=== PATIENT | male | born 1965 | race Two or more races ===

== ENCOUNTER 2016-11-04 21:34 | Emergency (ER) | payer OTHER ==
[2016-11-04 21:46] VITALS: BP 186/126
[2016-11-04] MEDS ORDERED: Sodium Chloride 0.9% 10 ML Syringe FLUSH PRN (22:03)
[2016-11-04] MEDS ORDERED: Sodium Chloride 0.9% 1,000 ML IV SCH (22:15)
--- NOTE | 2016-11-04 22:43 | EDM.PDOC ---
ED HPI Behavioral Health - General Chief Complaint: Behavioral/Psych Stated Complaint: MENTAL EVALUATION Time Seen by Provider: 11/04/16 21:55 Source of Information: Reports: Patient, Police Exam Limitations: Reports: Intoxication - History of Present Illness INITIAL COMMENTS - FREE TEXT/NARRATIVE: The patient was brought in by police for a mental health evaluation. He was diagnosed with renal cancer last month and he is having surgery on the with Dr Del Cid to have his left kidney removed. He had renal cancer on his right kidney a few years ago and he had a mass removed. He feels he may be depressed. He has not been eating or sleeping much. He has been drinking alcohol. He admits to drinking beer tonight. He said he wanted to shot himself in the head with a gun. He does not have a gun any more. he says he deserves what ever happens to him for all the bad things he has done. He is not hearing voices or seeing anything. Onset of Symptoms: Reports: gradual Duration of Symptoms: Reports: Day(s): Severity: moderate Context, Behavioral Health: Reports: other (Hard time dealing with a cancer diagnosis) Associated Symptoms: Reports: depression, suicidal thought - SAD Persons Scale (SPS) SPS Age: Between 18-65 Years of Age SPS Depression: Yes SPS Previous Suicide Attempts: Yes SPS Alcohol Abuse/Drug Abuse: Yes SPS Rational Thinking Loss: No SPS Social Support Deficit: No SPS Organized Suicide Plan: No SPS No Spouse/Significant Other: No SPS Sickness: Yes SPS Sad Person Scale Score: 4 - Related Data Allergies Allergy/AdvReac Type Severity Reaction Status Date / Time No Known Allergies Allergy Verified 11/04/16 21:46 Home Medications: Home Meds Carvedilol 12.5 mg PO BID 10/15/16 [History] Diltiazem HCl [Diltiazem 24Hr Cd] 240 mg PO DAILY 10/15/16 [History] Hydrocodone/Acetaminophen [[place] 5-325 Tablet] 1 - 2 each PO Q6H PRN #20 tablet 10/15/16 [Rx] Lisinopril 20 mg PO BID 10/15/16 [History] Prasugrel HCl [Effient] 1 tab PO DAILY 10/15/16 [History] atorvaSTATin [Lipitor] 80 mg PO BEDTIME 10/15/16 [History] glipiZIDE [Glucotrol XL] 1 tab PO DAILY 10/15/16 [History] metFORMIN [Glucophage] 1,000 mg PO BIDMEALS 10/15/16 [History] Past Medical History Cardiovascular History: Reports: High cholesterol, Hypertension, [place], Stents Gastrointestinal History: Reports: Chronic diarrhea Genitourinary History: Reports: Other (see below) Other Genitourinary History: tumor removed from kidney right kidney Musculoskeletal History: Reports: Back pain, chronic Psychiatric History: Reports: Anxiety, Depression Endocrine/Metabolic History: Reports: Diabetes, type II Oncologic (Cancer) History: Reports: Renal Dermatologic History: Reports: Other (see below) Other Dermatologic History: itchy skin - Past Surgical History Cardiovascular Surgical History: Reports: Coronary artery stent Social & Family History - Family History Family Medical History: Noncontributory - Tobacco Use Smoking Status *Q: Current Every Day Smoker Years of Tobacco use: 30 Packs/Tins Daily: 1 - Caffeine Use Caffeine Use: Reports: None - Alcohol Use Days Per Week of Alcohol Use: 7 Number of Drinks Per Day: 4 Total Drinks Per Week: 28 - Recreational Drug Use Recreational Drug Use: No ED ROS GENERAL - Review of Systems Review Of Systems: See Below Constitutional: Reports: no symptoms HEENT: Reports: No symptoms Respiratory: Reports: No Symptoms Cardiovascular: Reports: No symptoms Endocrine: Reports: no symptoms GI/Abdominal: Reports: No symptoms : Reports: no symptoms Musculoskeletal: Reports: no symptoms Skin: Reports: no symptoms Neurological: Reports: No Symptoms ED EXAM, BEHAVIORAL HEALTH - Physical Exam Exam: See Below Exam Limited By: Intoxication General Appearance: alert, no apparent distress Ears: normal external exam Nose: normal inspection Head: atraumatic, normocephalic Neck: normal inspection Respiratory/Chest: no respiratory distress, lungs clear, normal breath sounds Cardiovascular: regular rate, rhythm, no edema, no murmur GI/Abdominal: soft, non tender, no organomegaly, no mass Back Exam: normal inspection Extremities: normal inspection Neurological: alert, no motor/sensory deficits, oriented x 3 COURSE, BEHAVIORAL HEALTH COMP - Course Vital Signs: Last Vital Signs Temp 97.3 F 11/04/16 21:42 Pulse 115 H 11/04/16 21:42 Resp 18 11/04/16 21:42 BP 186/126 H 11/04/16 21:42 Pulse Ox 96 11/04/16 21:42 Orders, Labs, Meds: Active Orders 24 hr Category Date Time Status Cardiac Monitoring [RC] . DIRECTED Care 11/04/16 22:03 Active Peripheral IV Care [RC] . DIRECTED Care 11/04/16 22:03 Active Sodium Chloride 0.9% [Normal Saline] 1,000 ml Med 11/04/16 22:15 Active IV .BOLUS Sodium Chloride 0.9% [Saline Flush] Med 11/04/16 22:03 Active 10 ml FLUSH ASDIRECTED PRN Peripheral IV Insertion Adult [OM.PC] Stat Oth 11/04/16 22:03 Ordered Medication Orders Sodium Chloride (Normal Saline) 1,000 mls @ 1,000 mls/hr IV .BOLUS CAMRON Last Admin: 11/04/16 22:18 Dose: 1,000 mls/hr Sodium Chloride (Saline Flush) 10 ml FLUSH ASDIRECTED PRN PRN Reason: Keep Vein Open Last Admin: 11/04/16 22:20 Dose: 10 ml Laboratory Tests 11/04/16 11/04/16 11/04/16 Range/Units 22:00 22:00 22:09 WBC 9.19 H (4.23-9.07) K/mm3 RBC 4.32 L (4.63-6.08) M/mm3 Hgb 14.6 (13.7-17.5) gm/L Hct 42.6 (40.1-51.0) % MCV 98.6 H (79.0-92.2) fl MCH 33.8 H (25.7-32.2) pg MCHC 34.3 (32.2-35.5) g/dl RDW Std Deviation 45.8 H (35.1-43.9) fL Plt Count 326 (163-337) K/mm3 MPV 9.8 (9.4-12.3) fl Neut % (Auto) 55.3 (34.0-67.9) % Lymph % (Auto) 31.8 (21.8-53.1) % [place] % (Auto) 9.6 (5.3-12.2) % Eos % (Auto) 2.7 (0.8-7.0) Baso % (Auto) 0.4 (0.1-1.2) % Neut # 5.08 (1.78-5.38) K/mm3 Lymph # 2.92 (1.32-3.57) K/mm3 [place] # 0.88 H (0.30-0.82) K/mm3 Eos # 0.25 (0.04-0.54) K/mm3 Baso # 0.04 (0.01-0.08) K/mm3 Sodium (136-145) mEq/L Potassium (3.5-5.1) mEq/L Chloride (98-107) mEq/L Carbon Dioxide (21-32) mEq/L Anion Gap (5-15) BUN (7-18) mg/dL Creatinine (0.7-1.3) mg/dL Est Cr Clr Drug Dosing mL/min Estimated GFR (MDRD) (>60) mL/min BUN/Creatinine Ratio (14-18) Glucose (74-106) mg/dL Calcium (8.5-10.1) mg/dL Total Bilirubin (0.2-1.0) mg/dL AST (15-37) U/L ALT (16-63) U/L Alkaline Phosphatase (46-116) U/L Total Protein (6.4-8.2) g/dl Albumin (3.4-5.0) g/dl Globulin gm/dL Albumin/Globulin Ratio (1-2) TSH 3rd Generation (0.358-3.74) uIU/mL Urine Color Light yellow (Yellow) Urine Appearance Clear (Clear) Urine pH 6.5 (5.0-8.0) Ur Specific [place] 1.010 (1.005-1.030) Urine Protein Negative (Negative) Urine Glucose (UA) 2+ H (Negative) Urine Ketones Negative (Negative) Urine Occult Blood Negative (Negative) Urine Nitrite Negative (Negative) Urine Bilirubin Negative (Negative) Urine Urobilinogen 0.2 (0.2-1.0) Ur Leukocyte Esterase Negative (Negative) Urine RBC Not seen (0-5) /hpf Urine WBC 0-5 (0-5) /hpf Urine WBC Clumps Not seen (NOT SEEN) /hpf Ur Epithelial Cells Not seen (0-5) /hpf Urine Bacteria Not seen (FEW) /hpf Urine Mucus Not seen (FEW) /hpf Urine Yeast Not seen (NOT SEEN) Urine Opiates Screen Presumptive positive H (NEGATIVE) Ur Buprenorphine Scrn Negative (NEGATIVE) Ur Oxycodone Screen Presumptive positive H (NEGATIVE) Urine Methadone Screen Negative (NEGATIVE) Ur Propoxyphene Screen Negative (NEGATIVE) Ur Barbiturates Screen Negative (NEGATIVE) Ur Tricyclics Screen Negative (NEGATIVE) Ur Phencyclidine Scrn Negative (NEGATIVE) Ur Amphetamine Screen Negative (NEGATIVE) U Methamphetamines Scrn Negative (NEGATIVE) U Benzodiazepines Scrn Negative (NEGATIVE) U Cocaine Metab Screen Negative (NEGATIVE) U Marijuana (THC) Screen Negative (NEGATIVE) Ethyl Alcohol (0.00) gm% 11/04/16 Range/Units 22:09 WBC (4.23-9.07) K/mm3 RBC (4.63-6.08) M/mm3 Hgb (13.7-17.5) gm/L Hct (40.1-51.0) % MCV (79.0-92.2) fl MCH (25.7-32.2) pg MCHC (32.2-35.5) g/dl RDW Std Deviation (35.1-43.9) fL Plt Count (163-337) K/mm3 MPV (9.4-12.3) fl Neut % (Auto) (34.0-67.9) % Lymph % (Auto) (21.8-53.1) % [place] % (Auto) (5.3-12.2) % Eos % (Auto) (0.8-7.0) Baso % (Auto) (0.1-1.2) % Neut # (1.78-5.38) K/mm3 Lymph # (1.32-3.57) K/mm3 [place] # (0.30-0.82) K/mm3 Eos # (0.04-0.54) K/mm3 Baso # (0.01-0.08) K/mm3 Sodium 138 (136-145) mEq/L Potassium 3.7 (3.5-5.1) mEq/L Chloride 102 (98-107) mEq/L Carbon Dioxide 24 (21-32) mEq/L Anion Gap 15.7 H (5-15) BUN 12 (7-18) mg/dL Creatinine 1.1 (0.7-1.3) mg/dL Est Cr Clr Drug Dosing 84.62 mL/min Estimated GFR (MDRD) > 60 (>60) mL/min BUN/Creatinine Ratio 10.9 L (14-18) Glucose 336 H (74-106) mg/dL Calcium 9.2 (8.5-10.1) mg/dL Total Bilirubin 0.3 (0.2-1.0) mg/dL AST 25 (15-37) U/L ALT 63 (16-63) U/L Alkaline Phosphatase 106 (46-116) U/L Total Protein 7.7 (6.4-8.2) g/dl Albumin 4.5 (3.4-5.0) g/dl Globulin 3.2 gm/dL Albumin/Globulin Ratio 1.4 (1-2) TSH 3rd Generation 1.042 (0.358-3.74) uIU/mL Urine Color (Yellow) Urine Appearance (Clear) Urine pH (5.0-8.0) Ur Specific [place] (1.005-1.030) Urine Protein (Negative) Urine Glucose (UA) (Negative) Urine Ketones (Negative) Urine Occult Blood (Negative) Urine Nitrite (Negative) Urine Bilirubin (Negative) Urine Urobilinogen (0.2-1.0) Ur Leukocyte Esterase (Negative) Urine RBC (0-5) /hpf Urine WBC (0-5) /hpf Urine WBC Clumps (NOT SEEN) /hpf Ur Epithelial Cells (0-5) /hpf Urine Bacteria (FEW) /hpf Urine Mucus (FEW) /hpf Urine Yeast (NOT SEEN) Urine Opiates Screen (NEGATIVE) Ur Buprenorphine Scrn (NEGATIVE) Ur Oxycodone Screen (NEGATIVE) Urine Methadone Screen (NEGATIVE) Ur Propoxyphene Screen (NEGATIVE) Ur Barbiturates Screen (NEGATIVE) Ur Tricyclics Screen (NEGATIVE) Ur Phencyclidine Scrn (NEGATIVE) Ur Amphetamine Screen (NEGATIVE) U Methamphetamines Scrn (NEGATIVE) U Benzodiazepines Scrn (NEGATIVE) U Cocaine Metab Screen (NEGATIVE) U Marijuana (THC) Screen (NEGATIVE) Ethyl Alcohol 0.15 (0.00) gm% Medications Generic Name Dose Route Start Last Admin Trade Name Freq PRN Reason Stop Dose Admin Sodium Chloride 1,000 mls @ 1,000 mls/hr 11/04/16 22:15 11/04/16 22:18 Normal Saline IV 1,000 mls/hr .BOLUS CAMRON Administration Sodium Chloride 10 ml 11/04/16 22:03 11/04/16 22:20 Saline Flush FLUSH 10 ml ASDIRECTED PRN Administration Keep Vein Open Discontinued Medications Generic Name Dose Route Start Last Admin Trade Name [place] PRN Reason Stop Dose Admin Lorazepam 0.5 mg 11/04/16 23:52 11/04/16 23:56 Ativan IVPUSH 11/04/16 23:53 0.5 mg ONETIME ONE Administration Temazepam 15 mg 11/05/16 01:44 11/05/16 01:53 Restoril PO 11/05/16 01:45 15 mg ONETIME ONE Administration Re-Assessment/Re-Exam: I ordered an IV NS 1L bolus, labs, ETOH and urine drug screen. His WBC was elevated at 9.19. His glucose was elevated at 336. His TSH was negative. His UA shows no UTI. His UDS was positive for opiates and oxycodone which he takes. His ETOH was 0.15. I will let him sleep for awhile and assess him in the morning. He is doing good. I feel this was the stress from the diagnosis and alcohol. He does not want to be on an antidepressent at this time. I will have him talk to his doctor Dr Kim. Departure - Departure Time of Disposition: 05:55 Disposition: Home, Self-Care 01 Condition: good Clinical Impression: Suicidal ideation Alcohol intoxication Qualifiers: Complication of substance-induced condition: uncomplicated Qualified Code(s): F10.120 - Alcohol abuse with intoxication, uncomplicated Depression Qualifiers: Depression Type: unspecified Qualified Code(s): F32.9 - Major depressive disorder, single episode, unspecified Referrals: Chepe Kim Jr, MD [Primary Care Provider] - 3 Days Forms: ED Department Discharge Additional Instructions: Follow up with your doctor on Tuesday. Please return if you feel worse. - My Orders Last 24 Hours: My Active Orders 11/04/16 22:03 Cardiac Monitoring [RC] . DIRECTED Peripheral IV Care [RC] . DIRECTED Sodium Chloride 0.9% [Saline Flush] 10 ml FLUSH ASDIRECTED PRN Peripheral IV Insertion Adult [OM.PC] Stat 11/04/16 22:15 Sodium Chloride 0.9% [Normal Saline] 1,000 ml IV .BOLUS - Assessment/Plan Last 24 Hours: My Active Orders 11/04/16 22:03 Cardiac Monitoring [RC] . DIRECTED Peripheral IV Care [RC] . DIRECTED Sodium Chloride 0.9% [Saline Flush] 10 ml FLUSH ASDIRECTED PRN Peripheral IV Insertion Adult [OM.PC] Stat 11/04/16 22:15 Sodium Chloride 0.9% [Normal Saline] 1,000 ml IV .BOLUS
[2016-11-04] MEDS ORDERED: LORazepam 2 MG/ML MDV IVPUSH ONE (23:52)
[2016-11-05] MEDS ORDERED: Temazepam 15 MG Cap PO ONE (01:44)
== END 2016-11-05 06:00 | disposition home or self-care (01) ==
LOC: JD.ED 21:34
DX: F32.9 Major depressive disorder, single episode, unspecified (principal); F10.120 Alcohol abuse with intoxication, uncomplicated; I10 Essential (primary) hypertension; E78.00 Pure hypercholesterolemia, unspecified; I25.2 Old myocardial infarction; E11.9 Type 2 diabetes mellitus without complications; F17.210 Nicotine dependence, cigarettes, uncomplicated; Z79.899 Other long term (current) drug therapy; Z85.53 Personal history of malignant neoplasm of renal pelvis; Z95.5 Presence of coronary angioplasty implant and graft; Z98.890 Other specified postprocedural states; Z79.84 Long term (current) use of oral hypoglycemic drugs; Y90.0 Blood alcohol level of less than 20 mg/100 ml
CPT/HCPCS: 36415; 80053; 80306; 81001; 84443; 85025; 96361; 96374; 99285; A9270; G0480; J2060; J7040; J7050

== ENCOUNTER 2017-07-11 11:11 | Emergency (ER) | payer BC, OTHER ==
[2017-07-11 11:26] VITALS: BP 194/114
[2017-07-11] MEDS ORDERED: Aspirin 81 MG Tab.Chew PO STA (11:29)
[2017-07-11] MEDS ORDERED: Diltiazem 180 MG Cap.CD PO ONE (11:41)
[2017-07-11] MEDS ORDERED: Nitroglycerin 2% Oint 1 GM UD Packet TOP ONE (11:41)
[2017-07-11] MEDS ORDERED: HYDROmorphone 0.5 MG/0.5 ML Syringe IVPUSH ONE (13:12)
--- NOTE | 2017-07-11 13:18 | EDM.PDOC ---
ED HPI GENERAL MEDICAL PROBLEM - General Chief Complaint: Chest Pain Stated Complaint: CHEST PAIN Time Seen by Provider: 07/11/17 11:34 Source of Information: Reports: Patient, Family, RN Notes Reviewed - History of Present Illness INITIAL COMMENTS - FREE TEXT/NARRATIVE: 51-year-old male comes in with intermittent chest pain for the past 2 weeks. The episodes of discomfort been more frequent the last day or 2 and today he did have some radiation to the base of his neck into the left arm. He is pain- free at the time of my exam. He's not been short of breath. No nausea vomiting or diaphoresis. He does have history of known coronary artery disease with NV and one stent placed about 2 years ago. He quit smoking about 8 months ago. No major recent abdominal discomfort. 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 No recent cough fever or chills. Left Chest Pain Score (Numeric/FACES): 2 - Related Data Allergies Allergy/AdvReac Type Severity Reaction Status Date / Time No Known Allergies Allergy Verified 07/11/17 11:26 Home Meds: Home Meds Carvedilol 12.5 mg PO BID 10/15/16 [History] Diltiazem HCl [Diltiazem 24Hr Cd] 240 mg PO DAILY 10/15/16 [History] Hydrocodone/Acetaminophen [[place] 5-325 Tablet] 1 - 2 each PO Q6H PRN #20 tablet 10/15/16 [Rx] Lisinopril 20 mg PO BID 10/15/16 [History] Prasugrel HCl [Effient] 1 tab PO DAILY 10/15/16 [History] atorvaSTATin [Lipitor] 80 mg PO BEDTIME 10/15/16 [History] glipiZIDE [Glucotrol XL] 1 tab PO DAILY 10/15/16 [History] metFORMIN [Glucophage] 1,000 mg PO BIDMEALS 10/15/16 [History] Past Medical History Cardiovascular History: Reports: High Cholesterol, Hypertension, [place], Stents Gastrointestinal History: Reports: Chronic Diarrhea Genitourinary History: Reports: Other (See Below) Other Genitourinary History: 1 kidney removal r/t [place] Musculoskeletal History: Reports: Back Pain, Chronic Psychiatric History: Reports: Anxiety, Depression Endocrine/Metabolic History: Reports: Diabetes, Type II Oncologic (Cancer) History: Reports: Renal Dermatologic History: Reports: Other (See Below) Other Dermatologic History: itchy skin - Past Surgical History Cardiovascular Surgical History: Reports: Coronary Artery Stent Social & Family History - Family History Family Medical History: Noncontributory - Tobacco Use Smoking Status *Q: Former Smoker Years of Tobacco use: 30 Packs/Tins Daily: 1 Used Tobacco, but Quit: Yes Month Tobacco Last Used: october 2016 - Caffeine Use Caffeine Use: Reports: None - Alcohol Use Days Per Week of Alcohol Use: 7 Number of Drinks Per Day: 4 Total Drinks Per Week: 28 - Recreational Drug Use Recreational Drug Use: No ED ROS GENERAL - Review of Systems Review Of Systems: See Below Constitutional: Denies: Fever, Chills, Diaphoresis HEENT: Denies: Throat Pain Respiratory: Denies: Shortness of Breath, Pleuritic Chest Pain, Cough Cardiovascular: Reports: Chest Pain (Brief episodes of achiness and tightness left lower chest for about 2 weeks). Denies: Edema, Lightheadedness, Palpitations, Syncope GI/Abdominal: Denies: Abdominal Pain, Nausea, Vomiting Musculoskeletal: Reports: Arm Pain. Denies: Neck Pain Skin: Reports: No Symptoms (He did have some radiation of discomfort to the left arm this morning, now gone) Neurological: Denies: Dizziness, Numbness, Tingling, Trouble Speaking, Weakness ED EXAM, GENERAL - Physical Exam Exam: See Below General Appearance: Alert, No Apparent Distress Eye Exam: Bilateral Eye: PERRL Throat/Mouth: Normal Inspection, Normal Oropharynx Respiratory/Chest: No Respiratory Distress, Lungs Clear, Normal Breath Sounds Cardiovascular: Regular Rate, Rhythm GI/Abdominal: Soft, Non-Tender. No: Guarding Back Exam: No: CVA Tenderness (L), CVA Tenderness (R) Extremities: Normal Inspection Neurological: Alert, Oriented, No Motor/Sensory Deficits Skin Exam: Warm, Dry, Normal Color EKG INTERPRETATION EKG Date: 07/11/17 Rhythm: NSR [place]: Normal P-Wave: Present QRS: Normal ST-T: Normal Course - Vital Signs Last Recorded V/S: Last Vital Signs Temp 97 F 07/11/17 11:22 Pulse 73 07/11/17 11:22 Resp 15 07/11/17 11:22 BP 194/114 H 07/11/17 11:22 Pulse Ox 97 07/11/17 11:22 - Orders/Labs/Meds Orders: Active Orders 24 hr Category Date Time Status EKG Documentation Completion [RC] ASDIRECTED Care 07/11/17 11:30 Active Chest 1V Frontal [CR] Stat Exams 07/11/17 13:02 Taken EKG 12 Lead [EK] Stat Ther 07/11/17 11:30 Ordered Labs: Laboratory Tests 07/11/17 07/11/17 07/11/17 Range/Units 11:35 11:35 11:35 WBC 8.38 (4.23-9.07) K/mm3 RBC 3.93 L (4.63-6.08) M/mm3 Hgb 13.7 (13.7-17.5) gm/L Hct 40.6 (40.1-51.0) % MCV 103.3 H (79.0-92.2) fl MCH 34.9 H (25.7-32.2) pg MCHC 33.7 (32.2-35.5) g/dl RDW Std Deviation 46.6 H (35.1-43.9) fL Plt Count 310 (163-337) K/mm3 MPV 9.8 (9.4-12.3) fl Neut % (Auto) 65.8 (34.0-67.9) % Lymph % (Auto) 21.0 L (21.8-53.1) % [place] % (Auto) 10.3 (5.3-12.2) % Eos % (Auto) 2.4 (0.8-7.0) Baso % (Auto) 0.4 (0.1-1.2) % Neut # (Auto) 5.52 H (1.78-5.38) K/mm3 Lymph # (Auto) 1.76 (1.32-3.57) K/mm3 [place] # (Auto) 0.86 H (0.30-0.82) K/mm3 Eos # (Auto) 0.20 (0.04-0.54) K/mm3 Baso # (Auto) 0.03 (0.01-0.08) K/mm3 D-Dimer, Quantitative 0.24 (0.19-0.59) mg/L Sodium 142 (136-145) mEq/L Potassium 4.2 (3.5-5.1) mEq/L Chloride 105 (98-107) mEq/L Carbon Dioxide 27 (21-32) mEq/L Anion Gap 14.2 (5-15) BUN 13 (7-18) mg/dL Creatinine 1.5 H (0.7-1.3) mg/dL Est Cr Clr Drug Dosing 59.48 mL/min Estimated GFR (MDRD) 49 (>60) mL/min BUN/Creatinine Ratio 8.7 L (14-18) Glucose 109 H (74-106) mg/dL Calcium 9.4 (8.5-10.1) mg/dL Total Bilirubin 0.5 (0.2-1.0) mg/dL AST 35 (15-37) U/L ALT 57 (16-63) U/L Alkaline Phosphatase 101 (46-116) U/L Troponin I < 0.017 (0.00-0.056) ng/mL Total Protein 7.4 (6.4-8.2) g/dl Albumin 4.0 (3.4-5.0) g/dl Globulin 3.4 gm/dL Albumin/Globulin Ratio 1.2 (1-2) 07/11/17 Range/Units 14:50 WBC (4.23-9.07) K/mm3 RBC (4.63-6.08) M/mm3 Hgb (13.7-17.5) gm/L Hct (40.1-51.0) % MCV (79.0-92.2) fl MCH (25.7-32.2) pg MCHC (32.2-35.5) g/dl RDW Std Deviation (35.1-43.9) fL Plt Count (163-337) K/mm3 MPV (9.4-12.3) fl Neut % (Auto) (34.0-67.9) % Lymph % (Auto) (21.8-53.1) % [place] % (Auto) (5.3-12.2) % Eos % (Auto) (0.8-7.0) Baso % (Auto) (0.1-1.2) % Neut # (Auto) (1.78-5.38) K/mm3 Lymph # (Auto) (1.32-3.57) K/mm3 [place] # (Auto) (0.30-0.82) K/mm3 Eos # (Auto) (0.04-0.54) K/mm3 Baso # (Auto) (0.01-0.08) K/mm3 D-Dimer, Quantitative (0.19-0.59) mg/L Sodium (136-145) mEq/L Potassium (3.5-5.1) mEq/L Chloride (98-107) mEq/L Carbon Dioxide (21-32) mEq/L Anion Gap (5-15) BUN (7-18) mg/dL Creatinine (0.7-1.3) mg/dL Est Cr Clr Drug Dosing mL/min Estimated GFR (MDRD) (>60) mL/min BUN/Creatinine Ratio (14-18) Glucose (74-106) mg/dL Calcium (8.5-10.1) mg/dL Total Bilirubin (0.2-1.0) mg/dL AST (15-37) U/L ALT (16-63) U/L Alkaline Phosphatase (46-116) U/L Troponin I 0.017 (0.00-0.056) ng/mL Total Protein (6.4-8.2) g/dl Albumin (3.4-5.0) g/dl Globulin gm/dL Albumin/Globulin Ratio (1-2) Meds: Medications Discontinued Medications Generic Name Dose Route Start Last Admin Trade Name Freq PRN Reason Stop Dose Admin Hydrocodone Bitart/Acetaminophen 1 tab 07/11/17 15:55 07/11/17 16:04 [place] 325-5 Mg PO 07/11/17 15:56 1 tab ONETIME ONE Administration Aspirin 162 mg 07/11/17 11:29 07/11/17 11:46 Aspirin PO 07/11/17 11:30 162 mg STAT STA Administration Diltiazem HCl 180 mg 07/11/17 11:41 07/11/17 11:50 Cardizem Cd PO 07/11/17 11:42 180 mg ONETIME ONE Administration Hydromorphone HCl 0.5 mg 07/11/17 13:12 07/11/17 14:03 Dilaudid IVPUSH 07/11/17 13:13 0.5 mg ONETIME ONE Administration Nitroglycerin 1 gm 07/11/17 11:41 07/11/17 11:47 Nitro-Bid 2% TOP 07/11/17 11:42 1 gm ONETIME ONE Administration - Re-Assessments/Exams Free Text/Narrative Re-Assessment/Exam: 07/11/17 13:18 Troponin has come back normal, other labs are good. Chest x-ray looks good. EKG does not show acute abnormality. His been resting comfortably pain-free while here the ED. With his significant past history of coronary artery disease and having one stent will plan to do a repeat 3 hour troponin. 07/11/17 16:15. Repeat troponin also did come back normal. He is been resting very comfortably while here in the ED. He does have some headache coming on. Continues to have no chest discomfort, blood pressure was high on admission, better at time of my exam and has continued to improve. I am going to get him set up for cardiac stress test. Discharge instructions as documented. Departure - Departure Time of Disposition: 15:58 Disposition: Home, Self-Care 01 Condition: Fair Clinical Impression: Atypical chest pain Instructions: Nonspecific Chest Pain, [id number] Referrals: Chepe Kim Jr, MD [Primary Care Provider] - Forms: ED Department Discharge Additional Instructions: Continue current medications as prescribed, cardiac stress test has been ordered. If you are not given a date and time at discharge RT from this hospital will call you in the morning to get she is scheduled for date and time to have that done. Follow-up with your regular medical provider for results. Return to ED if symptoms worsening in any way. - My Orders Last 24 Hours: My Active Orders 07/11/17 11:30 EKG Documentation Completion [RC] ASDIRECTED EKG 12 Lead [EK] Stat 07/11/17 13:02 Chest 1V Frontal [CR] Stat - Assessment/Plan Last 24 Hours: My Active Orders 07/11/17 11:30 EKG Documentation Completion [RC] ASDIRECTED EKG 12 Lead [EK] Stat 07/11/17 13:02 Chest 1V Frontal [CR] Stat
[2017-07-11] MEDS ORDERED: Acetaminophen/HYDROcodone 325-5 MG Tab PO ONE (15:55)
--- NOTE | 2017-07-12 11:00 | CR ---
Chest: Portable view of the chest was obtained. Comparison: Prior chest x-ray of 09/09/14. Heart size and mediastinum are normal. Multiple right-sided rib fractures are seen which appear old but haven't occurred in the interim from prior study. This causes some right-sided pleural thickening. Lungs are clear with no acute infiltrates. Heart size and mediastinum are within normal limits. Impression: 1. Multiple old appearing right-sided rib fractures causing right-sided pleural thickening. Findings are an interval change from prior chest x-ray. 2. Nothing acute is identified on portable chest x-ray. Diagnostic code #2
== END 2017-07-11 16:17 | disposition home or self-care (01) ==
LOC: JD.ED 11:11
DX: R07.89 Other chest pain (principal); I10 Essential (primary) hypertension; E11.9 Type 2 diabetes mellitus without complications; Z79.84 Long term (current) use of oral hypoglycemic drugs; Z79.899 Other long term (current) drug therapy; Z87.891 Personal history of nicotine dependence
CPT/HCPCS: 36415; 71010; 80053; 84484; 85025; 85379; 93005; 96374; 99285; A9270; J1170; 93010